=== PATIENT | female | born 1975 | race Caucasian/White ===

== ENCOUNTER 2016-10-30 13:57 | Emergency (ER) | payer BC ==
[~2016-10-30] VITALS: Ht 154.9 cm; Wt 73.5 kg
[2016-10-30 14:12] VITALS: Ht 154.9 cm; Wt 73.5 kg
--- NOTE | 2016-10-30 15:20 | ERD ---
ER Documentation Chief Complaint Date/Time DATE: 10/30/16 TIME: 15:08 Chief Complaint ENCOUNTER FOR POST-OP WOUND CHECK ON LT THIGH HPI 41-year-old otherwise healthy female presents to the emergency department for a postop wound check. Patient states that exactly 14 days ago she underwent an anesthetic surgical procedure thigh lift. Patient states that postprocedure drains were placed and removed 10 days afterwards. Patient states that yesterday she noticed that the incision sites had open and were red. Patient states she drove to [place] wanted to see her surgeon yesterday and was reassured that everything was okay however the patient is concerned. Patient denies any current pain, fever, chills, nausea, vomiting, diarrhea. Patient states that her surgeon placed her on a 5 day course of Cipro which she completed today. Patient denies any history of diabetes. Patient denies shortness of breath, chest pain or calf swelling. ROS All systems reviewed and are negative except as per history of present illness. Medications Home Meds Active Scripts Bacitracin* (Bacitracin Oint (UD)*) 1 Applic Oint, 1 APPLIC TOP ONCE for 7 Days , PKT APPLY TO Prov:MARYLU LUKE PA-C 10/30/16 Sulfamethoxazole-Trimethoprim* (Bactrim* DS) 800-160 Mg Tab, 1 TAB PO BID for 5 Days, TAB Prov:MARYLU LUKE PA-C 10/30/16 Cephalexin* (Keflex*) 500 Mg Capsule, 500 MG PO QID for 5 Days, CAP Prov:MARYLU LUKE PA-C 10/30/16 PMhx/Soc History of Surgery: No Anesthesia Reaction: No Hx Neurological Disorder: No Hx Respiratory Disorders: No Hx Cardiac Disorders: No Hx Psychiatric Problems: No Hx Miscellaneous Medical Probl: No Hx Alcohol Use: No Hx Substance Use: No Hx Tobacco Use: No Smoking Status: Never smoker Physical Exam Vitals Vital Signs Date Time Temp Pulse Resp B/P Pulse Ox O2 Delivery O2 Flow Rate FiO2 10/30/16 14:12 99.6 104 16 153/76 99 Physical Exam Const: Well developed, well-nourished, no acute distress Head: Atraumatic Eyes: Normal Conjunctiva ENT: Normal External Ears, Nose and Mouth. Neck: Full range of motion..~ No meningismus. Resp: Clear to auscultation bilaterally Cardio: Regular rate and rhythm, no murmurs Abd: Soft, non tender, non distended. Normal bowel sounds Skin: 4 cm area of incisional dehiscence located along the left gluteal fold with overlying erythema and mild swelling. No active drainage, bleeding, or purulent discharge. 1 cm area of incisional dehiscence located along right anterior thigh with overlying erythema and clear discharge. No petechiae or rashes Back: No midline or flank tenderness Ext: No cyanosis, or edema Neur: Awake and alert Psych: Normal Mood and Affect Procedures/MDM 41-year-old female with no significant past medical history presents with complaints of incisional dehiscence status post aesthetic surgical thigh lift. Vital signs reviewed. Patient afebrile, non-tachycardic, normotensive. Patient denies any complaints of pain, TTP, calf swelling or tenderness, shortness of breath or chest pain. At this time I have low suspicion for severe systemic infection, sepsis, DVT, PE or acute coronary syndrome. Case discussed with who performed bedside exam. She agreed with plan to discharge with close outpatient. follow-up. Patient will be placed on alternative antibiotic therapy and topical antibiotic ointment. Instructed to stop application of cream as prescribed by surgeon. Patient instructed to keep area dry. No bathing until well healed. Patient has follow-up appointment scheduled on Thursday of next week and instructed to keep that appointment. Based on patient's history of present illness and physical examination the decision was made to discharge. The patient was re-evaluated after ED treatment and stabilizing measures, and symptoms have improved. There is no evidence of life threatening injuries or illnesses at this time. On re-examination, patient resting in no distress, stable vital signs, reports feeling better and safe for discharge with outpatient follow up with PMD in 1-2 days. Patient given return precautions. Departure Diagnosis: Primary Impression: Postoperative complication Surgical complication system/body Area: skin Surgical complication type: other Qualified Code: L76.82 - Other postoperative complication of skin Additional Impression: Wound dehiscence MARYLU ULKE PA-C Oct 30, 2016 15:18
[2016-10-30] MEDS ORDERED: BACTDS PO (15:42)
[2016-10-30] MEDS ORDERED: CEPH-443 PO (15:42)
[2016-10-30] MEDS ORDERED: BACITUD TOP (15:42)
== END 2016-10-30 16:22 | disposition home or self-care (01) ==
LOC: FTE 13:57
DX: L76.82 Other postprocedural complications of skin and subcutaneous tissue (principal); T81.30XA Disruption of wound, unspecified, initial encounter; Y82.8 Other medical devices associated with adverse incidents
CPT/HCPCS: 99284